=== PATIENT | male | born 1960 | race Caucasian/White ===

== ENCOUNTER → 2020-11-18 | Outpatient (CLI) | payer BC ==
--- NOTE | 2020-11-19 04:57 | MR ---
EXAMINATION TYPE: MR lumbar spine wo con DATE OF EXAM: 11/18/2020 COMPARISON: None HISTORY: Back pain into mary lower extremities Multiplanar multiecho imaging of the lumbar spine without contrast. Lumbar vertebra have normal alignment. There is mild uniform narrowing of lumbar disc spaces. There i s large posterior central disc herniation at L4-5 and the spinal canal. This is in the midline and is effacing the thecal sac. Disc herniation measures 17 x 12 mm. There is a smaller posterior disc herniation on the right side at L5-S1 impinging on the lateral rece ss. There is significant impingement on the lumbar nerve root on the right side. This disc herniation measures 9 x 7 mm. There is a small posterior disc bulge at L3-4 without impingement on the neural elements. There is no compression fracture. I see no focal bone destruction. There is no lumbar paraspinal mass. The sacro iliac joints are intact. IMPRESSION: Large posterior central L4-5 lumbar disc herniation with impingement on the thecal sac and compressio n deformity. Posterior right-sided focal disc herniation at L5-S1 with impingement on the right side S1 nerve root .
== END | disposition home or self-care (01) ==
LOC: RADMRIMAIN 09:50
PROVIDERS: ATTEND Family Medicine
DX: M48.061 Spinal stenosis, lumbar region without neurogenic claudication (principal); M51.27 Other intervertebral disc displacement, lumbosacral region
CPT/HCPCS: 72148

== ENCOUNTER → 2021-04-22 | Outpatient (CLI) | payer BC | END | disposition home or self-care (01) | LOC: LABPAT 08:14 | PROVIDERS: ATTEND Surgery Plastic and Reconstructive Surgery | DX: Z20.822 Contact with and (suspected) exposure to COVID-19 (principal) | CPT/HCPCS: U0003; C9803 ==

== ENCOUNTER 2021-04-24 07:25 | Day surgery (SDC) | payer BC ==
[2021-04-21 15:06] VITALS: BMI 36.1
[~2021-04-24 07:25] MED LIST: LACTATED RINGERS 1,000 ML IV SCH
--- NOTE | 2021-04-24 07:37 | P.GSHP ---
History of Present Illness H&P Date: 04/24/21 CHIEF COMPLAINT: Colon screen HISTORY OF PRESENT ILLNESS: The patient is a 60-year-old male who presents for colon screen. Lower endoscopy was offered for further evaluation and management. PAST MEDICAL HISTORY: Please see list. PAST SURGICAL HISTORY: Please see list. MEDICATIONS: Please see list. ALLERGIES: Please see list. SOCIAL HISTORY: No illicit drug use FAMILY HISTORY: No reports of Crohn disease or ulcerative colitis. REVIEW OF ORGAN SYSTEMS: CONSTITUTIONAL: No reports of fevers or chills. PHYSICAL EXAM: VITAL SIGNS: Stable GENERAL: Well-developed pleasant in no acute distress. HEENT: No scleral icterus. Extraocular movements grossly intact. Moist buccal mucosa. NECK: Supple without lymphadenopathy. CHEST: Unlabored respirations. Equal bilateral excursions. CARDIOVASCULAR: Regular rate and rhythm. Distal 2+ pulses. ABDOMEN: Soft, nontender, nondistended. MUSCULOSKELETAL: No clubbing, cyanosis, or edema. ASSESSMENT: 1. Colon screen. PLAN: 1. Recommend proceeding with a lower endoscopy Past Medical History Past Medical History: COPD, Hypertension, Musculoskeletal Disorder Additional Past Medical History / Comment(s): PT STATES DR. BILLINGSLEY STATED AN AORTIC ANEURSYM SHOWED ON CT SCAN ABOUT 3 WEEKS AGO-(WILL RECHECK IN A YEAR PER PT). IBS History of Any Multi-Drug Resistant Organisms: None Reported Past Surgical History: Back Surgery, Orthopedic Surgery Additional Past Surgical History / Comment(s): RIGHT SHOULDER surgery, repair left orbital fx. yrs. ago, skin graft thigh, cervical decompression c5-c7 01/27/16, COLONOSCOPY Past Anesthesia/Blood Transfusion Reactions: No Reported Reaction Smoking Status: Current every day smoker - Past Family History Mother Family Medical History: Cancer Medications and Allergies Home Medications Medication Instructions Recorded Confirmed Type Lisinopril [Prinivil] 10 mg PO DAILY 04/21/21 04/21/21 History Varenicline [Chantix Continuing 1 mg PO BID 04/21/21 04/21/21 History Pack] Allergies Allergy/AdvReac Type Severity Reaction Status Date / Time No Known Allergies Allergy Verified 04/21/21 14:58
[2021-04-24 07:47] VITALS: RESP 16; TEMP 97.2
[2021-04-24] MEDS ORDERED: LIDOCAINE 1% (10MG/ML) FOR IV START INTRADERMA ONE (07:48)
[2021-04-24] MEDS ORDERED: PROPOFOL 10 MG/ML 20 ML VIAL IV ONE (08:13)
[2021-04-24] MEDS ORDERED: LIDOCAINE 1% INJ 10MG/ML (20 ML MDV) ONE (08:13)
--- NOTE | 2021-04-24 08:41 | P.PCN ---
Date of Procedure: 04/24/21 Description of Procedure: PREOPERATIVE DIAGNOSIS: Personal history of colon polyps Colonoscopy screening POSTOPERATIVE DIAGNOSIS: Personal history of colon polyps Colonoscopy screening Sigmoid colon polyp OPERATION: Colonoscopy to the ileocecal valve and appendiceal orifice, cecum Colonoscopy with cold forceps biopsy SURGEON: Yaima Dinero MD. ANESTHESIA: MAC. INDICATIONS: The patient is an 60-year-old male who personal history of colon polyps. Last colonoscopy 10 years. Benefits and risks were described and informed consent was obtained. DESCRIPTION OF PROCEDURE: The patient had undergone Sutab prep. The patient had been brought into the operating room and laid in the left lateral decubitus position. After adequate intravenous sedation, the rectum was examined with 2% lidocaine jelly. The prostate was unremarkable. External hemorrhoids were encountered. The rectal tone was within normal limits. No lesions were palpated in the rectal vault. An Olympus colonoscope was advanced until the cecum, ileocecal valve and appendiceal orifice were clearly viewed. The prep was excellent. No sigmoid diverticulosis was encountered. Colonic polyps were found and removed. No evidence of focal colitis was found. Retroflexion of the scope demonstrated grade 2 internal hemorrhoids without active bleeding or inflammation. The colon was desufflated. The patient had tolerated the procedure well. Withdrawal time was over 6 minutes. FINDINGS: Aronchick preparation quality scale 1 (1-5) Internal hemorrhoids, grade 2 External hemorrhoids, grade 2. No arteriovenous malformations. No sigmoid diverticulosis Removal of 1 polyp: - Cold forceps biopsy at 20 cm from the anal verge, 4 mm polyp, sigmoid colon No focal colitis. RECOMMENDATIONS: Repeat colonoscopy 2026 Plan - Discharge Summary Discharge Rx Participant: No New Discharge Prescriptions: Continue Varenicline [Chantix Continuing Pack] 1 mg PO BID Lisinopril [Prinivil] 10 mg PO DAILY Discharge Medication List Lisinopril [Prinivil] 10 mg PO DAILY 04/21/21 [History] Varenicline [Chantix Continuing Pack] 1 mg PO BID 04/21/21 [History] Follow up Appointment(s)/Referral(s): Yaima Dinero MD [STAFF PHYSICIAN] - As Needed Patient Instructions/Handouts: Colorectal Polyps (DC) Activity/Diet/Wound Care/Special Instructions: Repeat colonoscopy in 2026 Discharge Disposition: HOME SELF-CARE
[2021-04-24 08:57] VITALS: BP 121/90; PULSE 81
== END 2021-04-24 09:21 | disposition home or self-care (01) ==
LOC: ORWHC2ENDO 07:25
PROVIDERS: ATTEND Surgery Plastic and Reconstructive Surgery
DX: Z12.11 Encounter for screening for malignant neoplasm of colon (principal); K63.5 Polyp of colon; K64.1 Second degree hemorrhoids; Z86.010 Personal history of colon polyps; J44.9 Chronic obstructive pulmonary disease, unspecified; I10 Essential (primary) hypertension; I71.9 Aortic aneurysm of unspecified site, without rupture; I73.9 Peripheral vascular disease, unspecified; K58.9 Irritable bowel syndrome, unspecified; Z98.890 Other specified postprocedural states; F17.200 Nicotine dependence, unspecified, uncomplicated; Z80.9 Family history of malignant neoplasm, unspecified; Z79.899 Other long term (current) drug therapy
CPT/HCPCS: 88305; 45380; J2001; J2704

== ENCOUNTER → 2021-12-02 | Outpatient (CLI) | payer BC ==
--- NOTE | 2021-12-02 12:53 | XR ---
EXAMINATION TYPE: XR chest 2V DATE OF EXAM: 12/02/2021 COMPARISON: NONE HISTORY: Presurgical study. TECHNIQUE: Frontal and lateral views of the chest are obtained. FINDINGS: Mild focal linear scarring in the right middle lobe. Left lung is clear. The cardiac silho uette size is within normal limits. Anterior fusion plate in the cervical spine is noted. IMPRESSION: No acute process.
== END | disposition home or self-care (01) ==
LOC: LABPAT 11:39
PROVIDERS: ATTEND Orthopaedic Surgery Orthopaedic Surgery of the Spine
DX: Z01.818 Encounter for other preprocedural examination (principal)
CPT/HCPCS: 71046; 80048; 85027; 85610; 85730; 87070; 93005

== ENCOUNTER → 2021-12-05 | Outpatient (CLI) | payer BC ==
[2021-12-05 10:05] LABS: INR 0.9 (<1.2); Partial Thromboplastin Time 22.7 sec (22.0-30.0); Prothrombin Time 10.3 sec (9.0-12.0)
[2021-12-05 15:02] LABS: African American GFR (CKD) 111.7 (60.0-200.0); Anion Gap 10.2 mmol/L (10.00-18.00); Blood Urea Nitrogen 13.6 mg/dL (9.0-27.0); Calcium 9.6 mg/dL (8.7-10.3); Carbon Dioxide 27.8 mmol/L (20.0-27.5); Non-African American GFR(CKD) 96.4 (60.0-200.0); Potassium 4.6 mmol/L (3.5-5.5)
[2021-12-05 15:04] LABS: HCT 39.5 % (39.6-50.0); HGB 13.3 g/dL (13.0-17.0); MCH 32.8 pg (27.0-32.0); MCHC 33.7 g/dL (32.0-37.0); MCV 97.3 fL (80.0-97.0); Mean Platelet Volume 10.7 fL (9.5-12.2); NRBC Per 100 WBC 0 /100 WBCS (0.0-0.0); Platelet Count 236 X 10*3/uL (140-440); RBC 4.06 X 10*6/uL (4.40-5.60); WBC 7.09 X 10*3/uL (4.50-10.00)
[2021-12-05 16:04] LABS: Appearance,Urine Clear (Clear); Bilirubin,Urine Negative (Negative); Blood,Urine Negative (Negative); Color,Urine Yellow (Yellow); Ketones,Urine Trace mg/dL (Negative); Nitrite,Urine Negative (Negative); Specific Gravity,Urine 1.024 (1.001-1.030)
== END | disposition home or self-care (01) ==
LOC: LABPAT 09:02
PROVIDERS: ATTEND Orthopaedic Surgery Orthopaedic Surgery of the Spine
DX: Z01.812 Encounter for preprocedural laboratory examination (principal); K42.0 Umbilical hernia with obstruction, without gangrene; M48.00 Spinal stenosis, site unspecified
CPT/HCPCS: 80048; 81003; 85027; 85610; 85730; 87070

== ENCOUNTER 2021-12-10 10:34 | Observation (INO) | payer BC ==
[~2021-12-10 10:34] MED LIST changes: +DEXAMETHASONE SOD PHOSPHATE 4 MG/ML 1 ML VIAL IV ONE; -LACTATED RINGERS 1,000 ML IV SCH; +LIDOCAINE 1% (10MG/ML) FOR IV START INTRADERMA PRN; +ONDANSETRON 4 MG/2 ML VIAL IVP ONE; +ceFAZolin 1,000 MG in SODIUM CHLORIDE 0.9% IRRIGATIO 1,000 ML IRRIGATION PRN
[2021-12-10] MEDS: LACTATED RINGERS 1,000 ML IV SCH ×2 (11:28→18:07)
[2021-12-10] MEDS ORDERED: HYDROmorphone (PF) 1 MG/ML ONE (12:20)
[2021-12-10] MEDS ORDERED: fentaNYL (PF) 50 MCG/ML 2 ML AMP ONE (12:20)
[2021-12-10] MEDS ORDERED: PHENYLEPHRINE-0.9% NACL SYG 1,000 MCG/10 ML SYRINGE ONE (12:20)
[2021-12-10] MEDS ORDERED: LIDOCAINE 2% INJ 20 MG/ML (2 ML VIAL) ONE (12:20)
[2021-12-10] MEDS ORDERED: NEOSTIGMINE 1 MG/ML 10 ML VIAL ONE (12:20)
[2021-12-10] MEDS ORDERED: ROCURONIUM 10 MG/ML (5 ML VIAL) IV ONE (12:20)
[2021-12-10] MEDS ORDERED: MIDAZOLAM 2 MG/2 ML VIAL ONE (12:20)
[2021-12-10] MEDS ORDERED: SUCCINYLCHOLINE CHLORIDE 200 MG/10 ML VIAL IV ONE (12:20)
[2021-12-10] MEDS ORDERED: GLYCOPYRROLATE 0.2 MG/ML 2 ML VIAL ONE (12:20)
[2021-12-10] MEDS ORDERED: PROPOFOL 10 MG/ML 20 ML VIAL IV ONE (12:20)
[2021-12-10] MEDS ORDERED: LIDOCAINE 0.5%-EPI 1:200,000 50 ML VIAL SQ ONE (12:28)
[2021-12-10] MEDS ORDERED: GELATIN SPONGE,ABSORB (LARGE) 1 EACH SPONGE TOPICAL ONE (12:28)
[2021-12-10] MEDS ORDERED: THROMBIN (BOVINE) 5,000 UNIT VIAL TOPICAL ONE (12:28)
[2021-12-10] MEDS ORDERED: LACTATED RINGERS 1,000 ML IV ONE ×2 (14:08)
[2021-12-10] MEDS ORDERED: MAGNESIUM HYDROXIDE 2,400 MG/10 ML CUP PO PRN (16:14)
[2021-12-10] MEDS ORDERED: BENZOCAINE/MENTHOL LOZENG 1 EACH LOZENGE MUCOUS MEM PRN (16:14)
[2021-12-10] MEDS ORDERED: ONDANSETRON 4 MG/2 ML VIAL IVP PRN (16:14)
--- NOTE | 2021-12-10 16:22 | P.OP ---
Date of Procedure: 12/10/21 Preoperative Diagnosis: Herniated nucleus pulposis L4 5 L5-S1, spinal stenosis L4 5 L5-S1, degenerative disc disease, low back pain, facet arthrosis, lower extremity radiculopathy, lower extremity weakness Postoperative Diagnosis: Same Anesthesia: GETA Pathology: none sent Condition: stable Disposition: PACU Description of Procedure: DESCRIPTION OF PROCEDURE(S): BRIEF OPERATIVE NOTE Preoperative Diagnosis: Herniated nucleus pulposis L4 5 L5-S1, spinal stenosis L4 5 L5-S1, degenerative disc disease, low back pain, facet arthrosis, lower extremity radiculopathy, lower extremity weakness Postoperative Diagnosis: Same Procedure: Laminectomy and decompression L4 5 L5-S1 Computer CT navigation aided Minimally invasive Posterior lateral decompression and facet fusion L4 5 L5-S1 Minimally invasive Transforaminal lumbar interbody fusion for a 360 fusion L4 5 L5-S1 Discectomy for decompression L4 5 L5-S1 Placement of interbody graft L4 5 L5-S1 Use of computer navigation for fusion L4 5 S1 Local autogenous bone grafting Aspiration of bone marrow from the vertebral body pedicle L4 on the right Use of bone graft extenders Surgeon: Dr. Cochran Management Consultant: Samantha JAIME who is present throughout the entire the case persistence during positioning, dissection, exposure, visualization, and all crucial elements of the case as well as closure. Anesthesia: General anesthesia per Estimated blood loss: Approximately 100 mL Complications: None apparent Components implanted: K2M minimally invasive [place] pedicle screw system withscrews measuring 6.5 mm in diameter to rods to [place] interbody cage with 10 mL of osteo amp bio4 bone graft substitute and 30 mL of the BX bone fibers to supplement the local autogenous bone graft and bone marrow aspirate Disposition: To recovery room in good stable condition. OPERATIVE INDICATIONS The patient has had severe issues at their lower extremity in her lower back over the past several months with significant worsening over the past several months despite aggressive conservative care. Over the past few months the patient had pain at their back and their lower extremities. The patient is having severe radicular symptoms at their lower extremity with weakness. The patient is having significant pain in their back. They are unable to obtain any comfort. He is found to have a large disc herniation L4 5 and significant foraminal stenosis L5-S1 with distribution L5-S1. These findings correlated well with his low back and lower extremity symptoms. He had significant facet arthrosis as well. We did aggressive conservative treatment with medications therapy and interventional pain management however thery were not having any relief. The patient has been through conservative treatment. We discussed various treatment options including surgery, and the patient wishes to proceed with surgery We discussed the risk, patient's alternatives and benefits of surgery including but not limited to, risk of bleeding risk of infection, risk of need for further surgery, risk of decreased, loss of motion, muscle function, malunion nonunion, hardware failure, nerve damage, paralysis, heart attack, blindness and . They understood issues with the current pandemic and the possibility of exposure. OPERATIVE SUMMARY After discussing all the risks, patient alternatives and benefits at length, the patient elected to proceed with surgical intervention, signed informed consent, and presented for their procedure. The patient was seen and examined in the preoperative holding area and the surgical site was marked. The patient was given antibiotics and brought to the operating room. The patient was sedated and intubated by anesthesia in standard fashion. The patient was positioned on to the operating room table in a prone position on the appropriate frame which was well-padded and well molded. We were careful to pad any bony prominences and pressure points. We were careful to maintain the patient's cervical spine and good neutral alignment and position throughout. The patient was prepped and draped in a normal standard fashion. An appropriate timeout and keystone protocol performed. We were able to proceed with the surgery. The local wound area was infiltrated with local anesthetic. Over the right iliac crest I was able to make small stab incisions and establish a guidepin screw fixation to the iliac crest 2. I was able place the computer referencing device over the guidepins to establish an appropriate reference point for the Ziem CT navigation. We then were able to place patient in an appropriate drape and do a navigation spin for visualization and 3-D reconstruction of the lumbar spine. I was able utilize C-arm guidance and navigation to establish appropriate position over the pedicles bilaterally at the appropriate levels at L4-L5 and S1 . With the appropriate levels confirmed was able to make small incisions over the appropriate pedicle sites bilaterally. Utilizing the computer navigation device I was able to establish bony landmarks at the right iliac crest for a bony reference point for the navigation device. I was able to establish a [place] needle over the lateral aspect of the pedicle and advanced the trocar into the pedicle being careful not to breech superiorly inferiorly medially or laterally using computer navigation device. Position was confirmed regularly with AP and lateral images on C-arm and with the computer navigation device at the appropriate levels bilaterally. I was able to establish the trocar into the pedicle appropriately into the posterior aspect of the vertebral body bilaterally at the appropriate levels at L4-L5 and S1. This was done at each of the pedicle positions and each of the vertebrae. At the superior vertebrae of L4 on the right I was able to take approximately 25 mL of bone aspiration for use later in the case to supplement the allograft and autograft bone. I was able place the guidewire into the trocar and into the vertebral body appropriately under C-arm guidance. Dissection was taken down over the wire to the appropriate starting position for the screw placed. The appropriate length screw was chosen, threaded over the guidewire and screwed appropriately into the pedicle and vertebral body under C- arm guidance in excellent alignment and position with good bony purchase. This is done at each of the screw sites at the appropriate levels.. With the screws intact I extended the incision to connect the screw hole sites on the most symptomatic side on the left. I dissected down to establish access over the pars and lamina to the base of the spinous process. I was able to expose the facet joint. The capsule the facet was taken down and showed some facet arthrosis at the joint. I was able to use a combination of curettes and [place] rongeurs and a high-speed drill to take down the facet joint and do a facetectomy. I was able get excellent foraminal decompression and central decompression with undermining across midline to perform a laminectomy centrally and contralaterally. I was able get good central decompression. The ligamentum flavum was taken down to further decompress centrally and at bilateral neural foramen. I was able to expose the disc space and visualize the traversing nerve root. Note was made of some disc protrusion and disc herniation that was abutting the traversing nerve root at the level causing further compression of the nerve root. There was a massive disc herniation at L4 5 which I was able to remove with discectomy. There is significant disc protrusion and herniation at L5-S1 as well. I was able to establish a annulotomy at the appropriate level protecting soft tissue and neural structures. Note was made of some disc desiccation at the disc. I performed a complete discectomy with accommodation of curettes and rasps and scrapers. I was able get good endplate preparation at the disc space. I sized for the appropriate size interbody spacer protecting the soft tissue and neural structures. The wound was copiously irrigated and suctioned dry. There is no evidence of any dural tear or leak. I was able to pack the disc space with local autogenous bone graft as well as a small amount of bone graft which was also placed into the interbody cage itself. Protecting the soft tissue structures and neural structures I was able place the interbody cage in good alignment and good position with good fit and fill at the interbody space. Position was confirmed with C-arm guidance. Good hemostasis maintained. There is no evidence of any dural tear or leak. Th e wound was irrigated and suctioned dry. With the hardware intact, intraoperative C-arm imaging was again taken which showed good alignment and position of the hardware at the appropriate levels at L4-L5 and S1. We were then able to measure, contour and place the rods and appropriate hardware bilaterally. I was able to place capcrews, tighten them down, and torque them with the torque screwdriver appropriately. With this intact I was able to place the local autogenous bone graft with additional bone graft enhancer as necessary into the posterior lateral gutters over the decorticated transverse processes and facet joints on the contralateral side. The remainder of the bone graft was placed over the facet joint on the contralateral side after taking down the facet joint capsule. With the bone graft intact, a stable construct, and good decompression at the appropriate levels, we were able to proceed with closure. Good hemostasis was maintained. There is no evidence of dural tear or leak. The fascia was closed for a watertight closure. he subcuticular tissue was closed with absorbable suture. The wound was cleaned and dried and dressed with the appropriate dressing. The drapes were broken down. The patient was gently rolled back onto their hospital bed being careful to maintain their cervical spine and good neutral alignment and position. They were woken up by anesthesia, extubated, and brought to the recovery room in good stable condition. The patient will be admitted to the hospital for appropriate postoperative care, medical management and monitoring. We will continue to follow them closely about the postoperative course.
[2021-12-10] MEDS: HYDROmorphone 0.5 MG/0.5 ML SYRINGE IVP PRN ×4 (16:31→22:17)
[2021-12-10] MEDS ORDERED: diphenhydrAMINE 50 MG/ML 1 ML VIAL IVP ONE (16:48)
--- NOTE | 2021-12-10 17:06 | FL ---
EXAMINATION TYPE: FL guidance operating room, XR lumbar spine 2 or 3V DATE OF EXAM: 12/10/2021 CLINICAL HISTORY: Low back pain. Lumbar stenosis. TECHNIQUE: Fluoroscopy. Intraoperative 2 views lumbar spine. COMPARISON: Lumbar spine MRI November 18, 2020. FINDINGS: Fluoroscopic guidance was provided during lumbar fusion procedure performed by Dr. Cochran. A total of 25 seconds of fluoroscopic time was utilized during the procedure and 5 spot images was a cquired. Intraoperative images obtained show placement of bilateral interpedicular rods and screws and metalli c disc material L4-S1 levels. IMPRESSION: As Above.
[2021-12-10] MEDS: CYCLOBENZAPRINE 10 MG TAB PO PRN (18:06)
[2021-12-10] MEDS: HYDROcodone/APAP 5-325MG 1 EACH TAB PO PRN (20:33)
[2021-12-10] MEDS: SODIUM CHLORIDE 0.9% 1,000 ML IV SCH (22:26)
[2021-12-11] MEDS: HYDROmorphone 0.5 MG/0.5 ML SYRINGE IVP PRN ×5 (02:21→21:01)
[2021-12-11] MEDS: HYDROcodone/APAP 5-325MG 1 EACH TAB PO PRN ×3 (04:55→19:12)
[2021-12-11] MEDS: CYCLOBENZAPRINE 10 MG TAB PO PRN ×2 (08:04→16:25)
--- NOTE | 2021-12-11 08:26 | P.PN ---
Progress Note - Text Progress Note Date: 12/11/21 Postoperative day #1 Patient is seen and examined today at bedside. The patient has some pain around the surgical site as expected. Pain is being controlled with medication. He is not yet voided for his full assist discontinued a few moments ago. He is ready to eat breakfast and denies any nausea or vomiting Physical Exam Afebrile with stable vital signs Abdomen is soft nontender. Chest has good excursion deep and space expiration The incision site is clean dry and intact. No erythema there is no purulence. Extremities have not had neurologic change from prior to surgery. He has sustained dorsal flexion plantar flexion and EHL intact Calves and thighs were soft nontender without evidence of DVT. Assessment/Plan Postoperative day #1 status post minimally invasive decompression fusion L4 5 L5-S1 for his large disc herniation with stenosis and lower extremity radiculopathy and low back pain and degenerative disc disease Patient is progressing as expected from the surgery. We will continue to increase the patient's mobilization with therapy. He'll get up out of bed today with therapy. We will continue pain control with oral or IV medications. Hopefully he'll be able to go home in the next 1-2 days if he is improving his mobilization and pain control We'll continue to follow patient closely.
[2021-12-11 09:11] LABS: Basophils # (A) 0.01 X 10*3/uL (0.00-0.10); Basophils % (A) 0.1 %; Eosinophils # (A) 0.03 X 10*3/uL (0.04-0.35); Eosinophils % (A) 0.3 %; HCT 33.9 % (39.6-50.0); HGB 11.4 g/dL (13.0-17.0); Immature Grans, Automated 0.4 %; Lymphocytes # (A) 2.34 X 10*3/uL (0.90-5.00); MCH 32.7 pg (27.0-32.0); MCHC 33.6 g/dL (32.0-37.0); MCV 97.1 fL (80.0-97.0); Mean Platelet Volume 10.5 fL (9.5-12.2); Monocytes # (A) 1.02 X 10*3/uL (0.20-1.00); NRBC Per 100 WBC 0 /100 WBCS (0.0-0.0); Neutrophils # (A) 6.72 X 10*3/uL (1.80-7.70); Neutrophils % (A) 66.2 %; Platelet Count 219 X 10*3/uL (140-440); RBC 3.49 X 10*6/uL (4.40-5.60); RDW 13.1 % (11.5-14.5); WBC 10.16 X 10*3/uL (4.50-10.00)
[2021-12-11 09:22] LABS: Anion Gap 8.8 mmol/L (10.00-18.00); BUN/Creat Ratio 22.64 Ratio (12.00-20.00); Calcium 8.2 mg/dL (8.7-10.3); Carbon Dioxide 26.4 mmol/L (20.0-27.5); Non-African American GFR(CKD) 96.7 (60.0-200.0); Potassium 4.3 mmol/L (3.5-5.5)
--- NOTE | 2021-12-11 10:25 | P.CONS ---
History of Present Illness - Reason for Consult Consult date: 12/10/21 Medical management Requesting physician: Aaliyah Cochran - Chief Complaint Back pain - History of Present Illness This is a very pleasant 61-year-old patient, follows with Dr. Villafuerte. Chronic stable medical conditions include COPD, hypertension, osteoarthritis, aortic aneurysm that is being followed, IBS. Patient underwent lumbar surgery by Dr. Black. Currently patient laying in bed. Pain control. No nausea vomiting. at the bedside. No chest pain or shortness of breath. Patient's COPD is controlled. Does not take any inhalers. Denies any cardiac history. Review of systems: GEN.: Tired EYES: None HEENT: None NECK: None RESPIRATORY: Occasionally short of breath CARDIOVASCULAR: None GASTROINTESTINAL: None GENITOURINARY: None MUSCULOSKELETAL: Joint pains LYMPHATICS: None HEMATOLOGICAL: None PSYCHIATRY: None NEUROLOGICAL: None Past medical history to include: COPD, hypertension, osteomyelitis, aortic aneurysm, IBS Social history: No alcohol. Did smoke in the past. . 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 Physical examination: VITAL SIGNS: 98.5, 96, 18, 117/72, 92% room air GENERAL:. BMI 38.4, reclining in bed awake comfortable. EYES: Pupils equal. Conjunctiva normal. HEENT: External appearance of nose and ears normal, oral cavity grossly normal. NECK: JVD not raised; masses not palpable. HEART: First and second heart sounds are normal; no edema. LUNGS: Respiratory rate normal; clear to auscultation. ABDOMEN: Soft, nontender, liver spleen not palpable, no masses palpable. PSYCH: Alert and oriented x3; mood and affect normal. MUSCULOSKELETAL:No Clubbing/cyanosis;muscles-grossly intact, evidence of OA NEUROLOGICAL: Cranial nerves grossly intact; no facial asymmetry, power and sensation grossly intact. LYMPHATICS: No lymph nodes palpable in the axilla and neck INVESTIGATIONS, reviewed in the clinical context: [ 12/05/2021] WBC 7 hemoglobin 13.3 platelets 236 potassium 4.6 creatinine 0.8 Assessment and plan: -Herniated nucleus pulposis L4 5 L5-S1, spinal stenosis L4 5 L5-S1, degenerative disc disease, low back pain, facet arthrosis, lower extremity radiculopathy, lower extremity weakness. Followed by laminectomy and decompression, basement of interbody graft aspiration of bone marrow. Use of bone graft extenders. By Dr. Black on 12/10/2021. -COPD in a previous smoker Albuterol when necessary -Essential hypertension Paternal -Primary osteoarthritis Use pain medication as needed -Aortic aneurysm, being followed outpatient by -Obesity BMI 38.4 Weight loss measures Care was discussed with the patient and the . Pain control in place. Activity per surgery. Resume Prinivil. Pneumatic compression sleeves for DVT prophylaxis. Thank you , will follow along Past Medical History Past Medical History: COPD, Hypertension, Osteoarthritis (OA) Additional Past Medical History / Comment(s): PT STATES DR. BILLINGSLEY STATED AN AORTIC ANEURSYM SHOWED ON CT SCAN ABOUT 3 WEEKS AGO-(WILL RECHECK IN A YEAR PER PT). IBS History of Any Multi-Drug Resistant Organisms: None Reported Past Surgical History: Back Surgery, Orthopedic Surgery Additional Past Surgical History / Comment(s): RIGHT SHOULDER surgery, repair left orbital fx. yrs. ago, skin graft thigh (AUTO TRAUMA), cervical decompression c5-c7 01/27/16, COLONOSCOPY Past Anesthesia/Blood Transfusion Reactions: No Reported Reaction Past Psychological History: No Psychological Hx Reported Smoking Status: Former smoker Past Alcohol Use History: None Reported Additional Past Alcohol Use History / Comment(s): APR 2021. Past Drug Use History: None Reported - Past Family History Mother Family Medical History: Cancer, Deep Vein Thrombosis (DVT) Medications and Allergies Home Medications Medication Instructions Recorded Confirmed Type lisinopriL [Prinivil] 10 mg PO QAM 04/21/21 12/10/21 History Allergies Allergy/AdvReac Type Severity Reaction Status Date / Time No Known Allergies Allergy Verified 12/10/21 11:05 Physical Exam Vitals: Vital Signs Temp Pulse Pulse Resp BP BP Pulse Ox 12/10/21 18:15 98.5 F 96 18 117/72 92 L 12/10/21 17:25 92 16 132/65 97 12/10/21 17:10 96 16 120/61 96 12/10/21 16:55 90 16 122/58 98 12/10/21 16:40 97 16 125/51 100 12/10/21 16:25 99 16 131/59 100 12/10/21 16:10 97.4 F L 95 16 155/81 96 12/10/21 11:09 97.6 F 77 18 129/88 95 Intake and Output 12/10/21 12/10/21 12/10/21 06:59 14:59 22:59 Intake Total 2349 450 Output Total 250 Balance 2349 200 Intake: IV 2349 450 Output: Urine 150 Estimated Blood Loss 100 Other: Weight 118 kg 118 kg Results CBC & Chem 7: 12/11/21 05:29 12/11/21 05:29
[2021-12-11] MEDS: SENNOSIDES-DOCUSATE SODIUM 1 EACH TAB PO SCH (10:26)
[2021-12-11] MEDS: lisinopriL 10 MG TAB PO SCH (10:26)
[2021-12-11] MEDS: LACTATED RINGERS 1,000 ML IV SCH ×4 (10:27→18:54)
[2021-12-11] MEDS: SODIUM CHLORIDE 0.9% 1,000 ML IV SCH ×2 (12:36→18:54)
--- NOTE | 2021-12-11 12:52 | P.PN ---
Progress Note - Text Progress Note Date: 12/11/21 - Chief Complaint Back pain Hospital course: This is a very pleasant 61-year-old patient, follows with Dr. Villafuerte. Chronic stable medical conditions include COPD, hypertension, osteoarthritis, aortic aneurysm that is being followed, IBS. Patient underwent lumbar surgery by Dr. Cochran. Currently patient laying in bed. Pain control. No nausea vomiting. at the bedside. No chest pain or shortness of breath. Patient's COPD is controlled. Does not take any inhalers. Denies any cardiac history. December 11: Had his Iyer catheter removed earlier today. Hasn't made urine to now. Getting some cramps in her lower extremity. Pain of the operative site present. Did tolerate some breakfast. No nausea vomiting. Past medical history to include: COPD, hypertension, osteomyelitis, aortic aneurysm, IBS Social history: No alcohol. Did smoke in the past. . Used to work with [email or web address]. Physical examination: VITAL SIGNS: 99.5, 100, 18, 10 3 x 71, 91% room air GENERAL:. Sitting up, feeling better EYES: Pupils equal. Conjunctiva normal. HEENT: External appearance of nose and ears normal, oral cavity grossly normal. NECK: JVD not raised; masses not palpable. HEART: First and second heart sounds are normal; no edema. LUNGS: Respiratory rate normal; clear to auscultation. ABDOMEN: Soft, nontender, liver spleen not palpable, no masses palpable. PSYCH: Alert and oriented x3; mood and affect normal. MUSCULOSKELETAL:No Clubbing/cyanosis;muscles-grossly intact, evidence of OA INVESTIGATIONS, reviewed in the clinical context: December 11: WBC 10.1 hemoglobin 11.4 platelets 219 potassium 4.3 crit 0.8 [ 12/05/2021] WBC 7 hemoglobin 13.3 platelets 236 potassium 4.6 creatinine 0.8 Assessment and plan: -Herniated nucleus pulposis L4 5 L5-S1, spinal stenosis L4 5 L5-S1, degenerative disc disease, low back pain, facet arthrosis, lower extremity radiculopathy, lower extremity weakness. Followed by laminectomy and decompression, basement of interbody graft aspiration of bone marrow. Use of bone graft extenders. By Dr. Black on 12/10/2021. -COPD in a previous smoker Albuterol when necessary -Essential hypertension Paternal -Primary osteoarthritis Use pain medication as needed -Aortic aneurysm, being followed outpatient by -Obesity BMI 38.4 Weight loss measures -Acute postprocedure blood loss anemia, as expected from surgery Add ferrous sulfate. Activity as tolerated. Continue current medication treatment plan. Pain management per surgical team. Discussed with patient. Thank you , will follow along
[2021-12-12] MEDS: HYDROmorphone 0.5 MG/0.5 ML SYRINGE IVP PRN ×4 (02:43→21:54)
[2021-12-12] MEDS: HYDROcodone/APAP 5-325MG 1 EACH TAB PO PRN (06:29)
--- NOTE | 2021-12-12 08:16 | P.PN ---
Progress Note - Text Progress Note Date: 12/12/21 Postoperative day #2 Patient is seen and examined today at bedside. His is at bedside with The patient has some pain around the surgical site as expected. He was able to get out of bed on his own overnight about 3 times sees bathroom and void freely. He is passing gas but has not yet had a bowel movement. He says is less leg feels numb and tingly. This was the length that was giving him significant pain preoperatively. He does not notice any new motor weakness Pain is being contr olled with medication. Physical Exam Afebrile with stable vital signs Abdomen is soft nontender. Chest has good excursion deep and space expiration The incision site is clean dry and intact. No erythema there is no purulence. The dressings are clear Extremities have not had neurologic change from prior to surgery. He has sustained a/plan flexion and EHL intact. He is able lift his legs up off the bed independently. Calves and thighs were soft nontender without evidence of DVT. Assessment/Plan Postoperative day #2 status post minimally invasive decompression and fusion L4 5 L5-S1 for his disc herniations with spinal stenosis and lower extremity radiculopathy and low back pain Patient is progressing as expected from the surgery. He was somewhat concerned with his numbness tingling in his lower extremity but his motor function is intact and I think he will continue to make progress as the nerve continues to heal over time. He is not having any neurologic loss and I think he is making improvement in terms of his mobilization, but he was expecting a bit of a quicker result and we tried to explain to him that his healing will take a significant amount time. We discussed this with him and his at bedside. We will continue to increase the patient's mobilization with therapy. They requested a prescription for a bedside commode but he may not need this as his mobilization should improve over the next day or 2 We will continue pain control with oral or IV medications. Hopefully he'll be okay for discharge home tomorrow. We'll continue to follow patient closely.
[2021-12-12] MEDS: SENNOSIDES-DOCUSATE SODIUM 1 EACH TAB PO SCH (09:08)
[2021-12-12] MEDS: lisinopriL 10 MG TAB PO SCH (09:09)
[2021-12-12] MEDS: HYDROcodone/APAP 7.5-325MG 1 EACH TAB PO PRN ×2 (14:39→19:04)
[2021-12-12] MEDS: SODIUM CHLORIDE 0.9% 1,000 ML IV SCH ×2 (14:46→21:58)
--- NOTE | 2021-12-12 21:08 | P.PN ---
Progress Note - Text Progress Note Date: 12/12/21 - Chief Complaint Back pain Hospital course: This is a very pleasant 61-year-old patient, follows with Dr. Villafuerte. Chronic stable medical conditions include COPD, hypertension, osteoarthritis, aortic aneurysm that is being followed, IBS. Patient underwent lumbar surgery by Dr. Cochran. Currently patient laying in bed. Pain control. No nausea vomiting. at the bedside. No chest pain or shortness of breath. Patient's COPD is controlled. Does not take any inhalers. Denies any cardiac history. December 11: Had his Iyer catheter removed earlier today. Hasn't made urine to now. Getting some cramps in her lower extremity. Pain of the operative site present. Did tolerate some breakfast. No nausea vomiting. December 12: Some pain at the operative site present. No BM. Lactulose ordered. No nausea vomiting. Did use a walker. Active Medications Hydrocodone Bitart/Acetaminophen (Hydrocodone/Apap 7.5-325mg 1 Each Tab) 1 each PO Q4HR PRN PRN Reason: Pain Last Admin: 12/12/21 19:04 Dose: 1 each Benzocaine/Menthol (Benzocaine/Menthol Lozeng 1 Each Lozenge) 1 each MUCOUS MEM Q4HR PRN PRN Reason: Sore Throat Stop: 01/09/22 16:15 Cyclobenzaprine HCl (Cyclobenzaprine 10 Mg Tab) 10 mg PO TID PRN PRN Reason: Muscle Spasm Stop: 01/09/22 16:15 Last Admin: 12/11/21 16:25 Dose: 10 mg Hydromorphone HCl (Hydromorphone 0.5 Mg/0.5 Ml Syringe) 0.5 mg IVP Q4HR PRN PRN Reason: Pain Stop: 01/09/22 16:15 Last Admin: 12/12/21 16:25 Dose: 0.5 mg Lactated Ringer's (Lactated Ringers) 1,000 mls @ 20 mls/hr IV .Q24H [facility] Last Admin: 12/11/21 18:54 Dose: Not Given Sodium Chloride (Saline 0.9%) 1,000 mls @ 75 mls/hr IV .[id number] [facility] Stop: 01/09/22 16:16 Last Admin: 12/12/21 14:46 Dose: Not Given Lidocaine HCl (Lidocaine 1% (10mg/Ml) For Iv Start) 0.1 ml INTRADERMA PER PROTOCOL PRN PRN Reason: IV Start Stop: 01/09/22 06:22 Last Admin: 12/10/21 11:28 Dose: 0.1 ml Lisinopril (Lisinopril 10 Mg Tab) 10 mg PO QAM [facility] Stop: 01/10/22 09:01 Last Admin: 12/12/21 09:09 Dose: 10 mg Magnesium Hydroxide (Magnesium Hydroxide 2,400 Mg/10 Ml Cup) 2,400 mg PO DAILY PRN PRN Reason: Constipation Stop: 01/09/22 16:15 Ondansetron HCl (Ondansetron 4 Mg/2 Ml Vial) 4 mg IVP Q8HR PRN PRN Reason: Nausea And Vomiting Stop: 01/09/22 16:15 Senna/Docusate Sodium (Sennosides-Docusate Sodium 1 Each Tab) 1 each PO DAILY [facility] Stop: 01/10/22 09:01 Last Admin: 12/12/21 09:08 Dose: 1 each Past medical history to include: COPD, hypertension, osteomyelitis, aortic aneurysm, IBS Social history: No alcohol. Did smoke in the past. . 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 Physical examination: VITAL SIGNS: 98.5, 98, 16, 1:30/78, 92% room air GENERAL:. Laying in bed EYES: Pupils equal. Conjunctiva normal. HEENT: External appearance of nose and ears normal, oral cavity grossly normal. NECK: JVD not raised; masses not palpable. HEART: First and second heart sounds are normal; no edema. LUNGS: Respiratory rate normal; clear to auscultation. ABDOMEN: Soft, nontender, liver spleen not palpable, no masses palpable. PSYCH: Alert and oriented x3; mood and affect normal. MUSCULOSKELETAL:No Clubbing/cyanosis;muscles-grossly intact, evidence of OA INVESTIGATIONS, reviewed in the clinical context: December 11: WBC 10.1 hemoglobin 11.4 platelets 219 potassium 4.3 crit 0.8 [ 12/05/2021] WBC 7 hemoglobin 13.3 platelets 236 potassium 4.6 creatinine 0.8 Assessment and plan: -Herniated nucleus pulposis L4 5 L5-S1, spinal stenosis L4 5 L5-S1, degenerative disc disease, low back pain, facet arthrosis, lower extremity radiculopathy, lower extremity weakness. Followed by laminectomy and decompression, basement of interbody graft aspiration of bone marrow. Use of bone graft extenders. By Dr. Black on 12/10/2021. -COPD in a previous smoker Albuterol when necessary -Essential hypertension Zestril -Primary osteoarthritis Use pain medication as needed -Aortic aneurysm, being followed outpatient by -Obesity BMI 38.4 Weight loss measures -Acute postprocedure blood loss anemia, as expected from surgery Add ferrous sulfate. Continue current medications. Discussed with patient. Activity as tolerated. Thank you , will follow along
[2021-12-13] MEDS: HYDROcodone/APAP 7.5-325MG 1 EACH TAB PO PRN ×6 (00:03→21:05)
[2021-12-13] MEDS: HYDROmorphone 0.5 MG/0.5 ML SYRINGE IVP PRN (07:01)
[2021-12-13] MEDS: lisinopriL 10 MG TAB PO SCH (07:38)
[2021-12-13] MEDS: SENNOSIDES-DOCUSATE SODIUM 1 EACH TAB PO SCH (07:38)
[2021-12-13] MEDS ORDERED: LACTULOSE 20 GM/30 ML CUP PO ONE (12:27)
[2021-12-13] MEDS ORDERED: PSYLLIUM HUSK 100% 6 GM PACKET PO SCH (12:30)
--- NOTE | 2021-12-13 13:14 | P.DS ---
Providers Date of admission: 12/11/21 03:26 Expected date of discharge: 12/13/21 Attending physician: Aaliyah Cochran Consults: 12/10/21 16:14 Consult Physician Routine Consulting Provider: Melo Rapp Consult Reason/Comments: Medical management Do you want consulting provider notified?: Yes Primary care physician: [facility] Hospital Course: This is a 61-year-old male who was admitted on 12/10/21 after undergoing minimally invasive decompression and fusion of L4-5, L5-S1 with Dr. Cochran. Patient was seen preoperatively by Dr. Villafuerte and cleared for surgery. Today is post-operative day #3. The patient is admitted to [facility] following the procedure. The procedure is performed without complication or sequelae. The patient is doing well postoperatively. Vital signs are stable. The patient is seen and examined bedside this morning. The patient states he is doing well and is comfortable. Per nursing he has been ambulating and mobilizing appropriately. He is urinating without issues. He has not yet had a bowel movement postoperatively. He is tolerating his diet well and is tolerating fluids well. Patient is comfortable returning home today. Patient denies chest pain, shortness of breath, nausea, vomiting, fevers, chills. On examination, the patient is sitting up in bed in no apparent distress. He is alert and oriented 3. On inspection of his low back, there is a clean, dry, intact Optifoam dressings in place with no bleeding or drainage to the dressing. There is no erythema, warmth, drainage. Patient has good active and passive range of motion of his upper lower extremities. Patient is neurovascularly intact to the bilateral lower extremities. No acute change in neurologic status. Bilateral lower extremities are warm and well perfused with brisk capillary refill. Calves are soft and non-tender to palpation bilaterally. The patient is discharged to home today in good condition, pending medical clearance. Please see discharge orders. Please refer to the med rec for accurate list of medications. Plan - Discharge Summary Discharge Rx Participant: No New Discharge Prescriptions: New Cyclobenzaprine [Flexeril] 10 mg PO TID PRN #30 tab PRN Reason: Muscle Spasm Psyllium Husk 100% [Metamucil Packet] 6 gm PO DAILY packet HYDROcodone/APAP 7.5-325MG [[place] 7.5-325] 1 tab PO Q4H PRN 3 Days #42 tab PRN Reason: Pain Continue lisinopriL [Prinivil] 10 mg PO QAM Discharge Medication List lisinopriL [Prinivil] 10 mg PO QAM 04/21/21 [History] HYDROcodone/APAP 7.5-325MG [[place] 7.5-325] 1 tab PO Q4H PRN 3 Days #42 tab 12/12/21 [Rx] Cyclobenzaprine [Flexeril] 10 mg PO TID PRN #30 tab 12/13/21 [Rx] Psyllium Husk 100% [Metamucil Packet] 6 gm PO DAILY packet 12/13/21 [Rx] Follow up Appointment(s)/Referral(s): Aaliyah Cochran DO [Doctor of Osteopathic Medicine] - 2 Weeks Robbie Villafuerte MD [Primary Care Provider] - 1 Week Activity/Diet/Wound Care/Special Instructions: Keep site clean. May shower with waterproof Tegaderm intact. Do not soak in a tub. After 72 hours postoperatively, patient May remove dressing and then may shower with area uncovered. Leave glue intact and allow it to fray off on its own. May ambulate as tolerated. Avoid heavy or rigorous activity. No repetitive bending twisting or lifting. No overhead work. Discharge Disposition: HOME SELF-CARE
[2021-12-13] MEDS: CYCLOBENZAPRINE 10 MG TAB PO PRN (14:06)
[2021-12-13] MEDS: LACTATED RINGERS 1,000 ML IV SCH (14:40)
[2021-12-13] MEDS: SODIUM CHLORIDE 0.9% 1,000 ML IV SCH ×2 (14:40→22:35)
--- NOTE | 2021-12-13 20:11 | P.PN ---
Progress Note - Text Progress Note Date: 12/13/21 - Chief Complaint Back pain Hospital course: This is a very pleasant 61-year-old patient, follows with Dr. Villafuerte. Chronic stable medical conditions include COPD, hypertension, osteoarthritis, aortic aneurysm that is being followed, IBS. Patient underwent lumbar surgery by Dr. Cochran. Currently patient laying in bed. Pain control. No nausea vomiting. at the bedside. No chest pain or shortness of breath. Patient's COPD is controlled. Does not take any inhalers. Denies any cardiac history. December 11: Had his Iyer catheter removed earlier today. Hasn't made urine to now. Getting some cramps in her lower extremity. Pain of the operative site present. Did tolerate some breakfast. No nausea vomiting. December 12: Some pain at the operative site present. No BM. Lactulose ordered. No nausea vomiting. Did use a walker. December 13: Seen by me earlier today. Pain is better. No BM. Repeat lactulose and Metamucil given. Oral intake better. Discussed with patient and at the bedside. Using his walker. Active Medications Hydrocodone Bitart/Acetaminophen (Hydrocodone/Apap 7.5-325mg 1 Each Tab) 1 each PO Q4HR PRN PRN Reason: Pain Last Admin: 12/13/21 07:06 Dose: 1 each Hydrocodone Bitart/Acetaminophen (Hydrocodone/Apap 7.5-325mg 1 Each Tab) 2 each PO Q6HR PRN PRN Reason: Pain Last Admin: 12/13/21 15:27 Dose: 2 each Benzocaine/Menthol (Benzocaine/Menthol Lozeng 1 Each Lozenge) 1 each MUCOUS MEM Q4HR PRN PRN Reason: Sore Throat Stop: 01/09/22 16:15 Cyclobenzaprine HCl (Cyclobenzaprine 10 Mg Tab) 10 mg PO TID PRN PRN Reason: Muscle Spasm Stop: 01/09/22 16:15 Last Admin: 12/13/21 14:06 Dose: 10 mg Hydromorphone HCl (Hydromorphone 0.5 Mg/0.5 Ml Syringe) 0.5 mg IVP Q4HR PRN PRN Reason: Pain Stop: 01/09/22 16:15 Last Admin: 12/12/21 21:54 Dose: 0.5 mg Lactated Ringer's (Lactated Ringers) 1,000 mls @ 20 mls/hr IV .Q24H [facility] Last Admin: 12/13/21 14:40 Dose: Not Given Sodium Chloride (Saline 0.9%) 1,000 mls @ 75 mls/hr IV .[id number] [facility] Stop: 01/09/22 16:16 Last Admin: 12/13/21 14:40 Dose: Not Given Lidocaine HCl (Lidocaine 1% (10mg/Ml) For Iv Start) 0.1 ml INTRADERMA PER PROTOCOL PRN PRN Reason: IV Start Stop: 01/09/22 06:22 Last Admin: 12/10/21 11:28 Dose: 0.1 ml Lisinopril (Lisinopril 10 Mg Tab) 10 mg PO QAM [facility] Stop: 01/10/22 09:01 Last Admin: 12/13/21 07:38 Dose: 10 mg Magnesium Hydroxide (Magnesium Hydroxide 2,400 Mg/10 Ml Cup) 2,400 mg PO DAILY PRN PRN Reason: Constipation Stop: 01/09/22 16:15 Ondansetron HCl (Ondansetron 4 Mg/2 Ml Vial) 4 mg IVP Q8HR PRN PRN Reason: Nausea And Vomiting Stop: 01/09/22 16:15 Senna/Docusate Sodium (Sennosides-Docusate Sodium 1 Each Tab) 1 each PO DAILY [facility] Stop: 01/10/22 09:01 Last Admin: 12/13/21 07:38 Dose: 1 each Past medical history to include: COPD, hypertension, osteomyelitis, aortic aneurysm, IBS Social history: No alcohol. Did smoke in the past. . 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 Physical examination: VITAL SIGNS: 98.1, 92, 18, 95/58, 92% room air GENERAL:. Sitting up, comfortable EYES: Pupils equal. Conjunctiva normal. HEENT: External appearance of nose and ears normal, oral cavity grossly normal. NECK: JVD not raised; masses not palpable. HEART: First and second heart sounds are normal; no edema. LUNGS: Respiratory rate normal; clear to auscultation. ABDOMEN: Soft, nontender, liver spleen not palpable, no masses palpable. PSYCH: Alert and oriented x3; mood and affect normal. MUSCULOSKELETAL:No Clubbing/cyanosis;muscles-grossly intact, evidence of OA INVESTIGATIONS, reviewed in the clinical context: December 11: WBC 10.1 hemoglobin 11.4 platelets 219 potassium 4.3 crit 0.8 [ 12/05/2021] WBC 7 hemoglobin 13.3 platelets 236 potassium 4.6 creatinine 0.8 Assessment and plan: -Herniated nucleus pulposis L4 5 L5-S1, spinal stenosis L4 5 L5-S1, degenerative disc disease, low back pain, facet arthrosis, lower extremity radiculopathy, lower extremity weakness. Followed by laminectomy and decompression, basement of interbody graft aspiration of bone marrow. Use of bone graft extenders. By Dr. Black on 12/10/2021. -COPD in a previous smoker Albuterol when necessary -Essential hypertension Zestril -Primary osteoarthritis Use pain medication as needed -Aortic aneurysm, being followed outpatient by -Obesity BMI 38.4 Weight loss measures -Acute postprocedure blood loss anemia, as expected from surgery Add ferrous sulfate. Increase activity as tolerated. Given lactulose and Metamucil 1 dose today. Other medications to continue. Thank you , will follow along
[2021-12-14] MEDS: LACTATED RINGERS 1,000 ML IV SCH (01:26)
[2021-12-14] MEDS: HYDROcodone/APAP 7.5-325MG 1 EACH TAB PO PRN ×2 (02:57→10:12)
[2021-12-14] MEDS: SENNOSIDES-DOCUSATE SODIUM 1 EACH TAB PO SCH (07:51)
[2021-12-14] MEDS: lisinopriL 10 MG TAB PO SCH (07:52)
[2021-12-14 07:53] VITALS: BP 132/81; RESP 18; TEMP 98.4
--- NOTE | 2021-12-14 09:20 | P.PN ---
Progress Note - Text Progress Note Date: 12/14/21 This patient is a 61- year old male who is status-post minimally invasive decompression and fusion L4-5, L5-S1 on 12/10/[address] Cochran. Patient was evaluated yesterday and discharge order was placed, although stayed an additional night in the hospital for pain control. Patient is examined bedside this morning on post-operative day #4. He states he is feeling much better this morning. His pain is well-controlled on oral medications. He is comfortable being discharged home today. He is mobilizing appropriately. He is voiding without issue. He has not had a bowel movement post-operatively. He denies chest pain, shortness of breath. Vital signs stable. On examination, patient is sitting up in bed in no apparent distress. He is alert and orientated x3. On inspection of his low back, surgical dressings are in place. No erythema, warmth. Motor and sensory function intact bilateral lower extremities. Neurovascular status is intact bilateral lower extremities. No acute changes in neurologic status. Calves are soft and non-tender to palpation bilaterally. Patient is discharged home today, pending medical clearance. Please see discharge orders. Patient is instructed to follow-up with Dr. Cochran in the office in two weeks.
[2021-12-14 10:23] VITALS: PULSE 90
== END 2021-12-14 11:06 | disposition home or self-care (01) ==
LOC: OR 10:34 → EDSTATUS 12:00 → 4SSUR 15:56 → OR 12-11 03:26
PROVIDERS: ADMIT Orthopaedic Surgery Orthopaedic Surgery of the Spine; ATTEND Orthopaedic Surgery Orthopaedic Surgery of the Spine
DX: M51.16 Intervertebral disc disorders with radiculopathy, lumbar region (principal); M51.17 Intervertebral disc disorders with radiculopathy, lumbosacral region; M48.061 Spinal stenosis, lumbar region without neurogenic claudication; J44.9 Chronic obstructive pulmonary disease, unspecified; I10 Essential (primary) hypertension; K58.9 Irritable bowel syndrome, unspecified; M19.91 Primary osteoarthritis, unspecified site; I71.9 Aortic aneurysm of unspecified site, without rupture; E66.9 Obesity, unspecified; Z68.38 Body mass index [BMI] 38.0-38.9, adult; Z87.891 Personal history of nicotine dependence; Z79.899 Other long term (current) drug therapy; Z83.2 Family history of diseases of the blood and blood-forming organs and certain disorders involving the immune mechanism
CPT/HCPCS: 96365; 96366; 96375; 96376 ×3; 97116 ×2; 97161; 86900; 86901; 80048; 85025; 86850; 72100; 22612; 22614; 22853 ×2; 20930; 20936; G0378 ×4; C1713 ×2; C1762; J2250; J0330; J1200; J2710; J0690 ×3; J2405; J3010; J1170 ×4; J2370; J2704; J2001

== ENCOUNTER → 2023-04-28 | Outpatient (CLI) | payer BC ==
--- NOTE | 2023-04-28 13:04 | XR ---
EXAMINATION TYPE: XR chest 2V DATE OF EXAM: 04/28/2023 COMPARISON: 12/02/2021 HISTORY: Shortness of breath TECHNIQUE: Frontal and lateral views of the chest are obtained. FINDINGS: Scattered senescent parenchymal changes noted. Hyperinflation compatible with COPD. No evidence for infiltrate. No evidence for atelectasis. Heart size is stable. Mediastinal structures are stable and grossly unremarkable. No evidence for hilar prominence. Degenerative changes dorsal spine. IMPRESSION: 1. No evidence for acute pulmonary disease.
== END | disposition home or self-care (01) ==
LOC: RADXRMAIN 12:38
PROVIDERS: ATTEND Internal Medicine Sleep Medicine
DX: J18.9 Pneumonia, unspecified organism (principal); R06.02 Shortness of breath
CPT/HCPCS: 71046

== ENCOUNTER → 2023-05-12 | Outpatient (CLI) | payer BC ==
--- NOTE | 2023-05-16 19:08 | MR ---
EXAMINATION TYPE: MR lumbar spine wo/w con DATE OF EXAM: 05/12/2023 COMPARISON: NONE HISTORY: 62-year-old male [id number], Lower back pain, bilateral LE numbness. Hx surgery 2020. Technique: Multiplanar, multisequence images of the lumbar spine were obtained before and after admin istration of 13 mL intravenous Gadavist gadolinium contrast. FINDINGS: Vertebral body heights are preserved and alignment is maintained. Postsurgical change of L4-S1 posterior and interbody lumbar fusion. There is congenital spinal canal stenosis especially mid lumbar spine with AP canal dimension of 1.0 cm. Mild degenerative disc disease with narrowing and bulging discs. Posterior annular fissure at L3-L4. Some facet arthropathy especially above the fusion at L3-L4. Conus medullaris is normal. Slight disc bulge above the fusion at L3-L4 accentuates the congenital mild spinal canal analysis. Ad ditional mild congenital spinal canal narrowing L2-L3. No evident canal compromise. On the right, there is metal artifact which limits detailed assessment of the neuroforamen. There is moderate neuroforaminal stenosis above the fusion at L3-L4. Possible residual moderate foraminal narr owing at the fused L4-S1 levels. On the left, metal artifact limits detailed assessment of the neural foramen. Mild neuroforaminal ladonna nosis above the fusion at L3-L4. Possible residual mild neuroforaminal narrowing at the fused L4-L5 a nd L5-S1 levels. No enhancing epidural perineural granulation tissue is clearly identified. IMPRESSION: 1. Status post L4-S1 posterior and interbody fusion. Background congenital spinal canal narrowing wit h AP canal dimension of 1.0 cm especially mid lumbar spine. 2. There is a mild posterior disc bulge above the fusion at L3-L4 with annular fissure and a slight a ccentuation of the mild congenital spinal canal stenosis. No high-grade canal compromise. 3. Moderate right neuroforaminal stenosis above the fusion at L3-L4. Mild on the left. 4. There may be residual moderate neuroforaminal stenoses on the right at the fused levels from L4 th rough S1 levels. The presence of metal artifact limits the evaluation.
== END | disposition home or self-care (01) ==
LOC: RADMRIMAIN 11:26
PROVIDERS: ATTEND Pain Medicine Interventional Pain Medicine
DX: M51.36 Other intervertebral disc degeneration, lumbar region (principal); M48.061 Spinal stenosis, lumbar region without neurogenic claudication; M99.73 Connective tissue and disc stenosis of intervertebral foramina of lumbar region; Z98.1 Arthrodesis status
CPT/HCPCS: 72158; A9585